=== PATIENT | male | born 1970 | race Caucasian/White ===

== ENCOUNTER 2022-10-06 08:19 | Emergency (ER) | payer OTHER ==
[2022-10-06 08:43] VITALS: RESP 18; TEMP 98.8; BMI 30.8
[2022-10-06] MEDS ORDERED: KETOROLAC TROMETHAMINE 15 MG/ML VIAL IVPUSH ONE (08:49)
[2022-10-06] MEDS ORDERED: ONDANSETRON 4 MG/2 ML VIAL IVPUSH ONE (08:49)
[2022-10-06] MEDS ORDERED: ACETAMINOPHEN 1000 MG/100 ML BAG IVPB ONE (08:49)
[2022-10-06] MEDS ORDERED: ONDANSETRON 4 MG/2 ML VIAL ONE (08:50)
[2022-10-06] MEDS ORDERED: ACETAMINOPHEN INJECTION 100 ML IVPB ONE (08:50)
[2022-10-06] MEDS ORDERED: KETOROLAC TROMETHAMINE 15 MG/ML VIAL ONE (08:51)
[2022-10-06] MEDS ORDERED: SODIUM CHLORIDE 1,000 ML IV STA (09:01)
[2022-10-06 09:29] LABS: HEMATOCRIT 47.1 % (35.4-49); HEMOGLOBIN 16.6 G/dL (11.7-16.9); MCH 30.5 pg (25.7-33.7); MCHC 35.2 g/dl (32.0-35.9); MEAN CELL VOLUME 86.6 fl (80-96); MEAN PLT VOLUME 7.7 fl (7.5-11.1); PLATELET COUNT 204.1 10^3/uL (134-434); RBC 5.44 10^6/uL (4.00-5.60); WHITE BLOOD COUNT 7.6 10^3/uL (4.0-10.8)
[2022-10-06 10:00] LABS: ALBUMIN 4.6 g/dl (3.4-5.0); BILIRUBIN,TOTAL 1.5 mg/dl (0.2-1); CREATININE 1.2 mg/dl (0.55-1.3); TOT PROT 7.8 g/dl (6.4-8.2)
[2022-10-06] MEDS ORDERED: morphine CARPU-JECT 8 MG/1 ML DISP.SYRIN IVPUSH ONE (10:00)
[2022-10-06 10:03] LABS: PLATELET ESTIMATE ADEQUATE
[2022-10-06] MEDS ORDERED: morphine SULFATE 4 MG/ML VIAL ONE (10:25)
[2022-10-06 11:30] VITALS: BP 131/77; PULSE 55
== END 2022-10-06 12:04 | disposition home or self-care (01) ==
LOC: FER 08:19
PROC: 3E033NZ Introduction of Analgesics, Hypnotics, Sedatives into Peripheral Vein, Percutaneous Approach (ICD-10-PCS; principal; 2022-10-06)
PROC: 3E0333Z Introduction of Anti-inflammatory into Peripheral Vein, Percutaneous Approach (ICD-10-PCS; 2022-10-06)
PROC: 3E033GC Introduction of Other Therapeutic Substance into Peripheral Vein, Percutaneous Approach (ICD-10-PCS; 2022-10-06)
PROC: 3E0337Z Introduction of Electrolytic and Water Balance Substance into Peripheral Vein, Percutaneous Approach (ICD-10-PCS; 2022-10-06)
PROC: 3E033GC Introduction of Other Therapeutic Substance into Peripheral Vein, Percutaneous Approach (ICD-10-PCS; 2022-10-06)
DX: N20.0 Calculus of kidney (principal)
CPT/HCPCS: 36415; 74176-TC; 80053; 81003; 85025; 87086; 87186; 99285-25; C9803-CS; U0003; U0005